=== PATIENT | female | born 1995 | race Caucasian/White ===

== ENCOUNTER → 2020-01-06 12:31 | Outpatient (CLI) | payer OTHER, SELFPAY ==
[2019-09-16 18:21] VITALS: BMI 44.8
== END ==
PROVIDERS: PCP Nurse Practitioner; Referring Provider Nurse Practitioner; Visit Provider Nurse Practitioner
DX: Z20.828 Contact with and (suspected) exposure to other viral communicable diseases (principal)
CPT/HCPCS: 87635; G2023; U0003

== ENCOUNTER 2020-04-18 15:18 | Emergency (ER) | payer OTHER, SELFPAY ==
[2020-02-17 20:11] VITALS: BMI 42.9
[2020-04-18 15:19] VITALS: BP 119/56; PULSE 62; RESP 17; TEMP 36.3; O2SAT 99; BMI 42.5
--- NOTE | 2020-04-18 16:10 | VDLE_ITS ---
Reason For Study: EDEMA RIGHT LEFT FV is compressible, spontaneous, phasic, FV is compressible, spontaneous, phasic, competent and demonstrates normal competent and demonstrates normal augmentation. augmentation. POP V is compressible, spontaneous, phasic, POP V is compressible, spontaneous, phasic, competent and demonstrates normal competent and demonstrates normal augmentation. augmentation. T/P Trunk is compressible. T/P Trunk is compressible. PTV is compressible. PTV is compressible. RT PerV is compressible. LT PerV is compressible. GSV is normal. GSV is normal. PTV AND PEROV compressible distally . Prox to Mid calf veins are difficult to visualize bilaterally d/t edema and body habitus. CFV and SFJ are not visualized bilaterally due to recent surgery - incision/ wound drain placement. Procedure Exam performed portable in ED. A preliminary report was called and/or faxed to ED. Interpretation Summary Deep veins of the lower extremities are bilaterally patent and compressible segmentally. There is no evidence of deep vein thrombosis on either side. Valvular competence appears intact within the proximal deep venous systems bilaterally. The great saphenous veins appear bilaterally patent and compressible segmentally. The proximal and mid-calf deep veins were not well visualized on either side due to edema and the patient's body habitus. The common femoral veins and sapheno-femoral junctions were not visualized bilaterally due to incisions/wounds/surgical drains. Ordering Physician: Chen Serrano Referring Physician: ARTEMIO HUDDLESTON Performed By: Mamie Izquierdo, HARSHA, RVT
--- NOTE | 2020-04-18 16:11 | ED.VIS.GEN ---
History of Present Illness Chief Complaint: Edema Informant: Patient Onset: Today Context: Gradual Onset Timing: Waxes and wanes Narrative: Patient is a 25-year-old female presenting with bilateral lower extremity edema. Patient had an abdominal plasty through [facility] surgeons on 04/12, 6 days ago. Her surgeon was Dr. Snow. Today she notes that she has increased swelling of her legs and feel like there is a lot of fluid in her legs. States her legs feel heavy. She currently denies any other complaint such as chest pain, shortness of breath or difficulty breathing. She denies any history of DVT. She states she is been trying to move around as much as possible. She is currently on pain medication and an antibiotic. Her surgeon recommended she get ruled out for blood clot and then likely get started on a water pill. Patient is not on any control. She denies any other complaints at this time. Past Medical History - Allergies and Home Meds Allergies/Adverse Reactions: Allergies No Known Allergies Allergy (Verified 04/18/20 15:18) Primary Care Physician: Asya Vallejo IN SERVICE EDUCATION TEACHER, IN SERVICE EDUCATION TEACHER-C [Primary Care Provider] - Past Medical History: - - hypothyroid Surgical History: gastric bypass, - - Abdominal plasty Review of Systems General: Denies: Chills, Fever, Sweats Eyes: Denies: Visual changes - bilaterally, Diplopia ENT: Denies: Rhinorrhea, Sore throat Cardiovascular: Denies: Chest pain, Palpitations Respiratory: Denies: Dyspnea, Cough, Dyspnea on exertion Gastrointestinal: Reports: Abdominal pain - mild- post op. Denies: Nausea, Vomiting, Diarrhea Genitourinary: Denies: Dysuria, Hematuria, Frequency Musculoskeletal: Reports: Swelling - lower extremities . Denies: Back pain, Extremity Pain Skin: Reports: Wounds - surgical- lower abdomen. Denies: Rash Neurological: Denies: Headache, Weakness, Numbness Physical Exam Vital Signs/Narrative: Vital Signs Temp Pulse Resp BP Pulse Ox 04/18/20 15:19 97.4 F L 62 17 119/56 L 99 Inital Vital Signs reviewed: Yes General: Well nourished, Well developed, No Acute Distress Head: Normocephalic, Atraumatic Eyes: Perrl, EOMI ENT: Moist mucous membranes, No rhinorrhea Neck: Supple, Nontender Cardiovascular: Regular rate, Regular rhythm, No murmurs Respiratory: No distress, CTA bilaterally, Chest nontender Abdomen: Soft, Nondistended, Normal bowel sounds, Tender - mild abdominal tenderness, appropriate for patient's postoperative status, - - CHRISTINA draain in place, lower left abdominal wall . Negative for: Guarding, Rebound tenderness Back: Nontender, Normal Inspection Extremities: Nontender, Edema - 2+ pain edema, pedal. 2+ DP pulses bilaterally Skin: Normal color, No rash, - - Surgical incision, low transverse with Steri-Strips in place. No surrounding erythema or drainage. Patient does have some mild drainage at her umbilicus but no surrounding erythema. (Patient is currently on antibiotics for this drainage) Neurological: Alert, Oriented x3, Cranial nerves II-XII grossly intact, Normal Strength, Normal Sensation Psychological: Normal affect, Normal Mood Diagnostic/Tx/Re-eval - Medical Decision Making Patient is evaluated for postoperative leg swelling. She has no other symptoms. She appears nontoxic in no acute distress. Her vital signs are normal. Patient does have peripheral edema on exam. She has no palpable cords. She has no respiratory or cardiovascular symptoms. Venous duplex obtained which is negative for DVT. I do not suspect PE and I do not think blood work is indicated at this time. Likely this is just third spacing from her recent surgery and dependent edema. Patient is counseled to elevate her legs. She will be started on a short course of Lasix to help with the edema. Patient will follow-up with her plastic surgeon as needed. Patient is counseled on signs and symptoms requiring return to the emergency room. Patient verbalizes agreement and understand this plan. Patient discharged home in stable and improved condition. ED Disposition - Plan for ED Patient: Disposition: Home or Assisted Living Diagnosis: Peripheral edema Instructions: ED Peripheral Edema, Bilateral Prescriptions: Furosemide [Lasix] 20 mg PO DAILY #5 tab Transmission Status: Pending to [facility]69 Additional Instructions: Please elevate your legs as much as possible. Follow-up with your surgeon in the next week. Your ultrasound of your legs did not show blood clot today.
[2020-04-18 17:37] VITALS: BP 115/63; PULSE 75; RESP 14; O2SAT 98
== END 2020-04-18 17:43 | disposition home or self-care (01) ==
PROVIDERS: Emergency Provider Emergency Medicine; PCP Nurse Practitioner
DX: R60.0 Localized edema (principal); E03.9 Hypothyroidism, unspecified; Z98.84 Bariatric surgery status
CPT/HCPCS: 93970; 99282

== ENCOUNTER 2020-04-22 19:09 | Emergency (ER) | payer OTHER, SELFPAY ==
[2020-04-22 19:09] VITALS: BP 116/66; PULSE 74; RESP 15; TEMP 36.3; O2SAT 97; BMI 43.5
--- NOTE | 2020-04-22 19:30 | CT_ITS ---
STUDY: CT ABDOMEN AND PELVIS WITHOUT CONTRAST REASON FOR EXAM: Female, 25 years old. Bariatric surgery, skin resection recently, infection RADIATION DOSAGE (If Supplied By Facility): CTDIvol = ( 20.40 ) mGy, DLP = ( 1400.74 ) mGycm TECHNIQUE: Transaxial images were obtained from the dome of the diaphragm to the symphysis pubis without oral contrast, and without intravenous contrast. Sagittal and coronal images were reconstructed. Individualized dose optimization techniques were used for this CT. COMPARISON: None. FINDINGS: Approximately at the umbilical level there is a heterogeneously enhancing 5 cm soft tissue region with extensive surrounding inflammation without loculated fluid collection. There is a surgically placed drain in the anterior abdominal subcutaneous compartment. However, the drain is not in proximity to the subcutaneous phlegmon. Lung bases are clear. Abdominal solid organs are intact. The stomach is surgically reduced. Gallbladder is removed. CT/Abdomen/Pelvis W IV Cont ONLY IMPRESSION: Lower abdominal subcutaneous phlegmon and panniculitis, no abscess. No intra-abdominal abnormality. Electronically Signed: Candida Parry, at 20:17 EDT Tel , Service support ,
--- NOTE | 2020-04-22 19:32 | ED.VISSUMM ---
- ER Visit Summary Date of Service: 04/22/20 Chief Complaint: Status post abdominal wall resection with postop pus drainage History of Present Illness: The patient is a 25 F status post gastric bypass 2 years ago in which she lost about 140 pounds. On April 12 10 days ago she had abdominal wall resection by a plastic surgeon in [place] named Dr. Juan Daniel Snow. Patient is been doing well. States today she noted foul-smelling puslike drainage from 1 of the surgical incisions. Denies any fever or chills. Denies any nausea or vomiting. States she was on an antibiotic which she finished. Physical Examination: Well-appearing 35-year-old. No acute distress. Vital signs are stable afebrile. She does not look septic or toxic. H EENT exam unremarkable. Neck nontender. Lungs clear to auscultation bilaterally. Heart regular rhythm no murmur. Rate about 70. Abdomen soft. Well-healing lower abdominal incision from what looks like a pannus resection. She also has a port up by her umbilicus that is draining elaine foul-smelling pus. No substantial blood. No substantial tenderness. No peritoneal signs. No cellulitis. A wound culture was obtained. Patient is moving all 4 extremities. No edema. Neurologically she is awake and alert. Test Results: CBC shows a white count of 10. Hemoglobin of 10. No bands. Electrolytes unremarkable. Gap of 6. Normal creatinine. Normal glucose. CT abdomen and pelvis with IV contrast shows a collection of fluid subcu tissue consistent with a phlegmon or early abscess. No intra-abdominal abnormality seen. This was read by the radiologist and reviewed by me. Emergency Department Course and Treatment: CAT scan to assess the extent of the wound infection. Screening labs. IV Zosyn given. Wound culture obtained. Patient will be discharged with a copy of her CAT scan and lab results to show her plastic surgeon's office tomorrow. Treatment Plan: I spoke to the patient's plastic surgeon Dr. Juan Daniel Snow. He wanted me to open the draining wound a little further. And then will follow her up in the office tomorrow. I rechecked the patient's temperature was 98.2. She be placed on clindamycin 4 times a day. And will call her plastic surgeon's office first in tomorrow morning to be seen tomorrow. She knows return if feeling worse. Disposition: Discharge Impression: Wound infection with elaine draining pus. Rule out subcu abscess. Status post pannus resection of the abdominal wall Prior history of gastric bypass This note was generated with [employer] dictation software. It may contain incorrect words, spelling, and punctuation that were not noted in review of the chart prior to signing ED Disposition - Plan for ED Patient: Referrals: Asya Vallejo NP, PUBLIC ADDRESS SYSTEM OPERATOR-C [Primary Care Provider] -
[2020-04-22 19:50] LABS: Absolute Neutrophil Count 6.9 X10^3/uL (2.0-7.7); Basophil# 0.04 X10^3/uL; Basophil% 0.4 % (0-1); Eosinophil# 0.13 X10^3/uL; Eosinophils% 1.3 % (0-5); Hematocrit 32.7 % (37-47); Hemoglobin 10.3 g/dL (12.0-15.0); Lymphocyte % 23.7 % (19-41); Mean Corp Hgb Conc 31.5 g/dL (32-36); Mean Corpuscular Hgb 29.8 pg (27.0-32.0); Mean Corpuscular Volume 94.5 fL (81-99); Mean Platelet Vol. 9.9 fl (6.2-12.0); Monocyte# 0.65 X10^3/uL; Monocyte% 6.4 % (0-10); NRBC Flagged by Analyzer 0 % (0-5); Neutrophil # 6.87 X10^3/uL (2.7-7.7); Neutrophil % 67.8 % (47-70); Platelet Count 418 K/mm3 (150-450); RBC Distribution Width CV 12.2 % (11.6-14.6); RBC Distribution Width SD 42.4 fl (35.1-43.9); Red Blood Count 3.46 M/mm3 (4.2-5.4); White Blood Count 10.1 K/mm3 (4.4-11.0)
[2020-04-22] MEDS: 0.9% Normal Saline 1,000 ML 999 ML IV (20:05)
[2020-04-22 20:24] LABS: Anion Gap 6 (5-15); BUN 13 mg/dL (7-18); BUN/Creat Ratio 22.9 RATIO (10-20); Calcium,Total 8.4 mg/dL (8.5-10.1); Chloride 108 mmol/L (98-107); Creatinine, Serum 0.57 mg/dL (0.55-1.02); EST Glomerular Filtration Rate 138 mL/min (>60); Est Glom Filt Rate - Afr Amer 167 mL/min (>60); Estimated Creatinine Clearance 141.24 ml/min; Glucose 89 mg/dL (74-106); Potassium 3.8 mmol/L (3.5-5.1); Sodium Level 143 mmol/L (136-145)
--- NOTE | 2020-04-22 20:55 | ED.DEP ---
ED Disposition - Plan for ED Patient: Disposition: Home or Assisted Living Instructions: ED Wound Infection after surgery Prescriptions: Clindamycin [Cleocin] 150 mg PO 4X/DAY #40 cap Prescription Printed Additional Instructions: Call first thing the morning and see Dr. Juan Daniel Snow's office tomorrow, Thursday, April 23. Clindamycin antibiotic 1 pill 4 times a day till gone. Return if feeling a lot worse such as fever or a lot worse pain.
[2020-04-22] MEDS: Lidocaine/Epi/Tetracaine 50 ML 1 APPLIC TOPICAL (21:00)
[2020-04-22] MEDS: Acetaminophen 500 MG Tablet 1000 MG PO (21:00)
[2020-04-22 21:09] VITALS: BP 112/63; PULSE 78; RESP 16; O2SAT 98
[2020-04-22 21:25] VITALS: RESP 16
== END 2020-04-22 21:44 | disposition home or self-care (01) ==
PROVIDERS: Emergency Provider Emergency Medicine; PCP Nurse Practitioner
DX: T81.49XA Infection following a procedure, other surgical site, initial encounter (principal); B99.8 Other infectious disease; M79.3 Panniculitis, unspecified; Z98.84 Bariatric surgery status
CPT/HCPCS: 74177; 80048; 85025; 87070; 87077; 87205; 96365; 99285; J7030; Q9967; A4216

== ENCOUNTER 2020-09-03 17:20 | Emergency (ER) | payer OTHER, SELFPAY ==
[2020-08-16 20:53] VITALS: BMI 42.6
[2020-09-03 17:21] VITALS: BP 147/83; PULSE 116; RESP 18; TEMP 36.2; O2SAT 94; BMI 42.3
--- NOTE | 2020-09-03 17:31 | ED.VIS.GEN ---
History of Present Illness Chief Complaint: Wound Check Informant: Patient Onset: Today Context: Gradual Onset Timing: Continuous Current Severity: Moderate Maximum Severity: Moderate Narrative: Patient is a 25-year-old female who is status post panniculectomy with new umbilicus in April of this year the presents to the emergency department drainage from the area. She states that she actually had this a few days after surgery. She was treated with antibiotics and did much better. She never required hospitalization. She states over the past 2 days, she noticed that her bellybutton was swollen. She states today it just burst open. She states there was thick drainage with an odor. She denies any fevers or chills. She denies any significant pain. She is otherwise been in her normal state of health. Prior similar symptoms: Yes Recent Illness/Hospitalization: No Past Medical History - Allergies and Home Meds Allergies/Adverse Reactions: Allergies No Known Allergies Allergy (Verified 09/03/20 17:21) Primary Care Physician: Asya Vallejo NP, ELECTRO OPTICS ENGINEER-C [Primary Care Provider] - Prior records reviewed: Yes Past Medical History: None Surgical History: gastric bypass, - - Abdominal plasty Smoking Status: Never smoker Review of Systems General: Denies: Chills, Fever, Sweats Eyes: Denies: Visual changes - bilaterally, Diplopia ENT: Denies: Rhinorrhea, Sore throat Cardiovascular: Denies: Chest pain, Palpitations Respiratory: Denies: Dyspnea, Cough, Dyspnea on exertion Gastrointestinal: Reports: Abdominal pain. Denies: Nausea, Vomiting, Diarrhea, Melena, Hematochezia Genitourinary: Denies: Dysuria, Hematuria, Frequency Musculoskeletal: Denies: Back pain, Extremity Pain Skin: Denies: Rash, Wounds Neurological: Denies: Headache, Weakness, Numbness Physical Exam Vital Signs/Narrative: Vital Signs Temp Pulse Resp BP Pulse Ox 09/03/20 17:21 97.2 F L 116 H 18 147/83 H 94 Inital Vital Signs reviewed: Yes General: Well nourished, Well developed, No Acute Distress Head: Normocephalic, Atraumatic Eyes: Perrl, EOMI ENT: Moist mucous membranes, No rhinorrhea Neck: Supple, Nontender Cardiovascular: Regular rate, Regular rhythm, No murmurs Respiratory: No distress, CTA bilaterally, Chest nontender Abdomen: Soft, Nondistended, Normal bowel sounds, Tender, - - Patient has abscess of the umbilicus. With gentle pressure, purulence was expressed. There is no evidence of retained material. There is no significant cellulitis. Back: Nontender, Normal Inspection Extremities: Nontender, No edema Skin: Normal color, No rash Neurological: Alert, Oriented x3, Cranial nerves II-XII grossly intact, Normal Strength, Normal Sensation Psychological: Normal affect, Normal Mood Diagnostic/Tx/Re-eval - Medical Decision Making Patient has recurrent abscess of the umbilicus. She has no abdominal tenderness. She is had no systemic symptoms. It does appear as if it is spontaneously drained. I am going to place the patient on clindamycin and short course of analgesics. I will have her follow-up with her plastic surgeon for reevaluation return with any worsening symptoms. Impression 1. Spontaneously draining umbilical abscess ED Disposition - Plan for ED Patient: Instructions: ED Wound Check (Infection) Prescriptions: Clindamycin HCl [Cleocin] 300 mg PO Q6H #40 cap Prescription Printed Hydrocodone Bitart/Apap 5-325 [Raven 5MG-325MG] 1 tab PO Q6H PRN PRN 3 Days #10 tab PRN Reason: Pain Prescription Printed Referrals: Asya Vallejo NP, ELECTRO OPTICS ENGINEER-C [Primary Care Provider] -
[2020-09-03 17:32] VITALS: BP 147/83; PULSE 116; RESP 18; TEMP 36.2; O2SAT 94
[2020-09-03] MEDS: Clindamycin HCl 150 MG Capsule 450 MG PO (17:38)
[2020-09-03] MEDS: HYDROcodone Bitartrate/Apap 5/325 Tablet PO (17:38)
[2020-09-03 17:41] VITALS: RESP 15
== END 2020-09-03 17:50 | disposition home or self-care (01) ==
LOC: ED 17:44
PROVIDERS: Emergency Provider Emergency Medicine; PCP Nurse Practitioner
DX: L02.216 Cutaneous abscess of umbilicus (principal); Z98.84 Bariatric surgery status
CPT/HCPCS: 99283